=== PATIENT | female | born 1960 | race African-American/Black ===

== ENCOUNTER 2016-11-10 11:31 | Day surgery (SDC) | payer OTHER ==
[~2016-11-10 11:31] MED LIST: ADVI200C9 PO; DAYQLIQ PO; DIOV160T3 PO; DRISTAN; LORA-474 PO; METO25 PO; OMEGA 3 PO; OSEL75 PO; POTA-243 PO; TAB-TAB PO; ZITH250T PO
[2016-11-10] MEDS ORDERED: METOPROLOL TARTRATE 25 MG TAB PO PRN (12:00)
[2016-11-10] MEDS ORDERED: CHLORHEXIDINE GLUCONATE 2 % 1 PACK (2 CLOTHS) TOPICAL PRN (12:00)
[2016-11-10] MEDS ORDERED: POVIDONE IODINE 5% (ANTISEPSIS KIT) 4 APPLICATIONS EACH NARE PRN (12:00)
[2016-11-10] MEDS ORDERED: SODIUM CHLORID 0.9% 500 ML IV PRN (12:00)
[2016-11-10] MEDS ORDERED: LACTATED RINGER'S 1000 ML IV PRN (12:00)
[2016-11-10] MEDS ORDERED: INSULIN HUMAN REGULAR 1,000 UNITS/10 ML VIAL SQ PRN (12:00)
[2016-11-10] MEDS ORDERED: HYDR25TA5 PO (12:34)
[2016-11-10] MEDS ORDERED: GABA300C5 PO (12:34)
[2016-11-10] MEDS ORDERED: FERR240T8 PO (12:34)
[2016-11-10] MEDS ORDERED: METO50TA11 PO (12:34)
[2016-11-10] MEDS ORDERED: LISI40TA PO (12:34)
[2016-11-10] MEDS ORDERED: MULT1TAB46 PO (12:34)
[2016-11-10] MEDS ORDERED: CELE200C PO (12:34)
--- NOTE | 2016-11-11 12:40 | CF ---
cc: ALONSO GAMEZ DATE OF PROCEDURE 11/10/2016 PROCEDURE PERFORMED: Transesophageal echocardiogram. INDICATION: CVA. Evaluation for cardiac source of emboli and PFO. PROCEDURE: After the patient was sedated by Anesthesia, transesophageal probe was placed without difficulty. Tomographic images were obtained. Left ventricular function was preserved. Estimated ejection fraction of 60% with no segmental wall motion abnormalities. The left atrial appendage was visualized and there was no evidence of left atrial thrombus. The aortic valve was structurally normal; there was no evidence of aortic stenosis. There was evidence of mild aortic insufficiency. The mitral valve was structurally normal; there was no evidence of mitral valve stenosis. There was evidence of trace mitral regurgitation. The tricuspid valve was well visualized. There was no evidence of tricuspid stenosis. There was evidence of mild tricuspid regurgitation. There was evidence of mild left ventricular hypertrophy. The descending aorta had no significant plaque. Bubble study was performed and there was no evidence of [id number] shunt. DIAGNOSES: 1. No evidence of cardiac source of emboli. 2. No evidence of [id number] shunt. 3. Preserved left ventricular systolic function. 4. Mild left ventricular hypertrophy. 5. Mild aortic insufficiency. 6. Trace mitral regurgitation. 7. Mild tricuspid regurgitation. IMPRESSION: No evidence of endocardiac source of emboli. Alonso Gamez MD OQ/SSB /1:46 PM /12:29 PM
--- NOTE | 2016-11-11 14:53 | EKG ---
Date Performed: 11/10/2016 Time Performed: 12:45:22 PTAGE: 56 years EKG: Sinus bradycardia Normal ECG except for rate PREVIOUS TRACING : 02/02/2009 01.59 Since previous tracing, no significant change noted DOCTOR: Macey Jackson Interpretating Date/Time 11/11/2016 14:51:53
== END 2016-11-10 15:15 | disposition home or self-care (01) ==
LOC: HDOC 11:31 → HDIC 11:32 → HDOC 15:15
PROVIDERS: ATTEND Internal Medicine Interventional Cardiology
DX: I63.9 Cerebral infarction, unspecified (principal); I35.1 Nonrheumatic aortic (valve) insufficiency; I36.1 Nonrheumatic tricuspid (valve) insufficiency; I10 Essential (primary) hypertension; I20.9 Angina pectoris, unspecified; I65.29 Occlusion and stenosis of unspecified carotid artery; D68.59 Other primary thrombophilia; E87.5 Hyperkalemia; R53.1 Weakness
CPT/HCPCS: 93005; 93312; 93320; 93325

== ENCOUNTER 2017-09-26 11:57 | Emergency (ER) | payer OTHER ==
[~2017-09-26] VITALS: Ht 172.7 cm; Wt 120.0 kg
[~2017-09-26 11:57] MED LIST changes: -ADVI200C9 PO; +CELE200C PO; -DAYQLIQ PO; -DIOV160T3 PO; +FERR240T8 PO; +GABA300C5 PO; +HYDR25TA5 PO; +LISI40TA PO; -LORA-474 PO; +METO1TAB9 PO; -METO25 PO; +MULT1TAB46 PO; -OSEL75 PO; -POTA-243 PO; -TAB-TAB PO; -ZITH250T PO
[2017-09-26 12:15] VITALS: BP 137/71; PULSE 79; RESP 24; TEMP 99.8; O2SAT 97
[2017-09-26] MEDS ORDERED: SODIUM CHLORIDE 0.9% FLUSH 10 ML FLUSH IVF PRN (13:00)
--- NOTE | 2017-09-26 13:14 | PD ---
HPI Chief Complaint: Chest Pain Time Seen by Provider: 12:46 Travel History International Travel<30 days: No Contact w/Intl Traveler<30days: No Traveled to known affect area: No History of Present Illness HPI Patient is a 57-year-old female presenting to the emergency department for evaluation of chest pain, chest congestion, sinus pressure, cough. Patient states the cough is productive with yellow sputum. The chest pressure started this morning, it is intermittent in nature, midsternal, no radiation. Patient denies any shortness of breath or diaphoresis. She states she was sent by the urgent care center for cardiac evaluation. She presented to the urgent care center for cold and flulike symptoms that started yesterday. Patient states she felt fatigued and had an irritated throat yesterday, symptoms progressed overnight prompting her visit to the urgent care center. Patient has a history of heart attack and stroke last year. Patient reports compliance with her medications, she took a full-strength aspirin this morning. She rates the pain in her chest a 4 out of 10, sore, worse with coughing. Patient denies any abdominal pain, nausea, vomiting. She does believe she had a fever this morning because she states she felt warm. PFSH Past Medical History High Cholesterol: Yes Cerebrovascular Accident: Yes Hypertension: Yes Respiratory: Yes Myocardial Infarction: Yes Influenza Vaccination: Yes ?: Not Tubal Ligation: Yes Past Surgical History Abdominal Surgery: Yes (GASTRIC BYPASS SLEEVE 2015) Hysterectomy: Yes Social History Alcohol Use: Yes (OCCASIONAL) Tobacco Use: No Substance Use: No Allergies-Medications (Allergen,Severity, Reaction): Coded Allergies: acetaminophen (Unverified Allergy, Severe, Itching, 11/23/16) hydrocodone (Unverified Allergy, Severe, Itching, 11/23/16) latex (Unverified Allergy, Severe, 11/23/16) levofloxacin (Unverified Allergy, Severe, 11/23/16) tuberculin, purified protein deriva (Unverified Allergy, Severe, 11/23/16) doxycycline (Unverified Adverse Reaction, Mild, YEAST INFECTION, 11/23/16) penicillin G (Unverified Adverse Reaction, Mild, YEAST INFECTION, 11/23/16) Uncoded Allergies: DISOLVABLE SUTURES (Allergy, Unknown, 11/10/16) Reported Meds & Prescriptions Reported Meds & Active Scripts Active Azithromycin 250 Mg Tab 250 Mg PO DIRECTED Take 2 tabs (500 mg) on day 1 then 1 tab daily x 4 days. Reported Lisinopril 40 Mg Tab 40 Mg PO DAILY Hydrochlorothiazide 25 Mg Tab 25 Mg PO DAILY Iron (Ferrous Gluconate) 240 Mg Tablet 142 Mg PO DAILY Multi Vitamin Daily (Multiple Vitamin) 1 Tab Tab 1 Tab PO DAILY Celebrex (Celecoxib) 200 Mg Cap 200 Mg PO BID Gabapentin 300 Mg Cap 300 Mg PO BID Metoprolol Succinate ER 24 HR (Metoprolol Succinate) 50 Mg Tab 50 Mg PO DAILY [Nalini] [Mcgehee 3] 1 Tab PO DAILY Review of Systems Except as stated in HPI: all other systems reviewed are Neg General / Constitutional: Positive: Fever, Chills HENT: Positive: Headaches, Sore Throat, Congestion Cardiovascular: Positive: Chest Pain or Discomfort Respiratory: Positive: Cough, No: Shortness of Breath, Wheezing Gastrointestinal: No: Nausea, Vomiting, Diarrhea, Abdominal Pain Musculoskeletal: Positive: Myalgias Neurologic: Positive: Weakness, No: Dizziness, Syncope Physical Exam Narrative GENERAL: Well-developed, well-nourished, alert -Turkmen female. Presenting in no acute distress. SKIN: Warm and dry. HEAD: Atraumatic. Normocephalic. EYES: Pupils equal and round. No scleral icterus. No injection or drainage. ENT: No nasal bleeding or discharge. Mucous membranes pink and moist. Posterior pharynx with cobblestone appearance. NECK: Trachea midline. No JVD. CARDIOVASCULAR: Regular rate and rhythm. RESPIRATORY: No accessory muscle use. Clear to auscultation. Breath sounds equal bilaterally. GASTROINTESTINAL: Abdomen soft, non-tender, nondistended. Hepatic and splenic margins not palpable. MUSCULOSKELETAL: Extremities without clubbing, cyanosis, or edema. No obvious deformities. NEUROLOGICAL: Awake and alert. No obvious cranial nerve deficits. Motor grossly within normal limits. Five out of 5 muscle strength in the arms and legs. Normal speech. PSYCHIATRIC: Appropriate mood and affect; insight and judgment normal. Data Data Last Documented VS Vital Signs Date Time Temp Pulse Resp B/P (MAP) Pulse Ox O2 Delivery O2 Flow Rate FiO2 09/26/17 13:22 98 Room Air 09/26/17 12:15 99.8 79 24 137/71 (93) Orders Orders Electrocardiogram (09/26/17 12:46) Ckmb (Isoenzyme) Profile (09/26/17 12:46) Complete Blood Count With Diff (09/26/17 12:46) Comprehensive Metabolic Panel (09/26/17 12:46) Magnesium (Mg) (09/26/17 12:46) Prothrombin Time / Inr (Pt) (09/26/17 12:46) Act Partial Throm Time (Ptt) (09/26/17 12:46) Troponin I (09/26/17 12:46) Lipase (09/26/17 12:46) Chest, Single Ap (09/26/17 12:46) Ecg Monitoring (09/26/17 12:46) Bilateral Bp Monitoring (09/26/17 12:46) Iv Access Insert/Monitor (09/26/17 12:46) Oximetry (09/26/17 12:46) Oxygen Administration (09/26/17 12:46) Sodium Chloride 0.9% Flush (Ns Flush) (09/26/17 13:00) Ed Discharge Order (09/26/17 14:35) Labs Laboratory Tests Test 09/26/17 13:18 White Blood Count 5.5 TH/MM3 Red Blood Count 4.61 MIL/MM3 Hemoglobin 12.0 GM/DL Hematocrit 37.3 % Mean Corpuscular Volume 81.1 FL Mean Corpuscular Hemoglobin 26.1 PG Mean Corpuscular Hemoglobin Concent 32.2 % Red Cell Distribution Width 14.4 % Platelet Count 233 TH/MM3 Mean Platelet Volume 8.9 FL Neutrophils (%) (Auto) 65.5 % Lymphocytes (%) (Auto) 22.7 % Monocytes (%) (Auto) 10.9 % Eosinophils (%) (Auto) 0.3 % Basophils (%) (Auto) 0.6 % Neutrophils # (Auto) 3.6 TH/MM3 Lymphocytes # (Auto) 1.2 TH/MM3 Monocytes # (Auto) 0.6 TH/MM3 Eosinophils # (Auto) 0.0 TH/MM3 Basophils # (Auto) 0.0 TH/MM3 CBC Comment DIFF FINAL Differential Comment Prothrombin Time 10.4 SEC Prothromb Time International Ratio 1.0 RATIO Activated Partial Thromboplast Time 26.6 SEC Blood Urea Nitrogen 12 MG/DL Creatinine 0.85 MG/DL Random Glucose 88 MG/DL Total Protein 6.8 GM/DL Albumin 3.6 GM/DL Calcium Level 7.8 MG/DL Magnesium Level 1.8 MG/DL Alkaline Phosphatase 118 U/L Aspartate Amino Transf (AST/SGOT) 16 U/L Alanine Aminotransferase (ALT/SGPT) 24 U/L Total Bilirubin 0.7 MG/DL Sodium Level 145 MEQ/L Potassium Level 3.7 MEQ/L Chloride Level 109 MEQ/L Carbon Dioxide Level 26.9 MEQ/L Anion Gap 9 MEQ/L Estimat Glomerular Filtration Rate 83 ML/MIN Total Creatine Kinase 70 U/L Troponin I LESS THAN 0.02 NG/ML Lipase 137 U/L MDM Medical Decision Making Medical Screen Exam Complete: Yes Emergency Medical Condition: Yes Interpretation(s) Vital Signs Date Time Temp Pulse Resp B/P (MAP) Pulse Ox O2 Delivery O2 Flow Rate FiO2 09/26/17 12:37 Room Air 09/26/17 12:15 99.8 79 24 137/71 (93) 97 Differential Diagnosis Bronchitis versus pneumonia versus ACS versus USA versus costochondritis versus other Narrative Course Patient is a 57-year-old female that presented emergency department for evaluation of cold and flulike symptoms, she reportedly has been experiencing intermittent chest pain which is worse with coughing. Patient's vital signs are stable. Labs and imaging ordered and pending. CBC, chemistry coags with no acute findings. Cardiac enzymes are negative 1 set. Initial EKG which was read by my attending physician shows normal sinus rhythm. Chest x-ray is negative for acute findings. Patient was also seen and evaluated by my attending physician, case was discussed with her. Patient's physical exam and presentation appear most consistent with a bronchitis. Patient will be discharged home on azithromycin. She is encouraged to follow-up with her primary doctor or return to emergency department for any new or worsening symptoms. She was encouraged to take ibuprofen or acetaminophen as needed as directed for fevers or body aches and pain. Patient verbalized understanding of these instructions. Patient stable for discharge. Diagnosis Primary Impression: Acute bronchitis Qualified Codes: J20.9 - Acute bronchitis, unspecified Referrals: Cat Skinner Primary Care Physician Patient Instructions: Acute Bronchitis (ED), General Instructions Additional Instructions: Complete course of antibiotics as prescribed Continue symptom management Follow-up with your primary doctor Return to emergency department for any new or worsening symptoms Rest, maintain adequate fluid intake Med/Other Pt SpecificInfo: Prescription(s) given Scripts Benzonatate (Tessalon Perles) 100 Mg Cap 200 MG PO TID Y for COUGH, #15 CAP 0 Refills Prov: Josefina Napoles 09/26/17 Methylprednisolone Dosepak (Medrol Dosepak) 4 Mg Dspk 4 MG PO DIRECTED, #1 DSPK 0 Refills Per Pharmacist direction Prov: Josefina Napoles 09/26/17 Azithromycin (Azithromycin) 250 Mg Tab 250 MG PO DIRECTED for Infection, #6 TAB 0 Refills Take 2 tabs (500 mg) on day 1 then 1 tab daily x 4 days. Prov: Josefina Napoles 09/26/17 Disposition: 01 DISCHARGE HOME Condition: Stable Josefina Napoles Sep 26, 2017 13:14
--- NOTE | 2017-09-26 13:23 | RADRPT ---
EXAM DATE: 09/26/2017 1:20 PM EDT AGE/SEX: 57 years / Female INDICATIONS: Chest pain. CLINICAL DATA: This is the patient's initial encounter. Patient reports that signs and symptoms have been present for 1 day and indicates a pain score of 5/10. MEDICAL/SURGICAL HISTORY: . Myocardial infarction. None. COMPARISON: POI, XR CHEST PA AND LAT, 03/17/2017. . FINDINGS: A single AP view of the chest demonstrates the lungs to be symmetrically aerated without evidence of mass, infiltrate or effusion. The cardiomediastinal contours are unremarkable. Osseous structures a re intact. There appear to be clips in the left upper quadrant. CONCLUSION: No acute cardiopulmonary process. Electronically signed by: Eduardo Morton MD 09/26/2017 1:22 PM EDT
[2017-09-26 13:38] LABS: AUTOMATED NEUTROPHIL # 3.6 TH/MM3 (1.8-7.7); BASOPHIL % 0.6 % (0.0-2.0); EOSINOPHIL % 0.3 % (0.0-4.0); HEMATOCRIT 37.3 % (35.0-46.0); LYMPH % 22.7 % (9.0-44.0); LYMPHOCYTE # 1.2 TH/MM3 (1.0-4.8); MEAN CELL VOLUME 81.1 FL (80.0-100.0); MEAN CORPUSCULAR HEMOGLOBIN 26.1 PG (27.0-34.0); MEAN CORPUSCULAR HGB CONC 32.2 % (32.0-36.0); MEAN PLATELET VOLUME 8.9 FL (7.0-11.0); MONO % 10.9 % (0.0-8.0); MONOCYTE # 0.6 TH/MM3 (0-0.9); NEUT % 65.5 % (16.0-70.0); PLATELET COUNT 233 TH/MM3 (150-450); RED BLOOD COUNT 4.61 MIL/MM3 (4.00-5.30); RED CELL DISTRIBUTION WIDTH 14.4 % (11.6-17.2); WHITE BLOOD COUNT 5.5 TH/MM3 (4.0-11.0)
[2017-09-26 13:48] LABS: PROTHROMBIN TIME - PATIENT 10.4 SEC (9.8-11.6)
[2017-09-26 14:04] LABS: ALBUMIN 3.6 GM/DL (3.4-5.0); ALT (GPT) 24 U/L (10-53); AST (GOT) 16 U/L (15-37); BICARBONATE 26.9 MEQ/L (21.0-32.0); BLOOD UREA NITROGEN 12 MG/DL (7-18); CALCIUM 7.8 MG/DL (8.5-10.1); CHLORIDE 109 MEQ/L (98-107); CREATININE 0.85 MG/DL (0.50-1.00); GLOMERULAR FILTRATION RATE 83 ML/MIN (>89); GLUCOSE,RANDOM 88 MG/DL (74-106); MAGNESIUM 1.8 MG/DL (1.5-2.5); SODIUM (NA) 145 MEQ/L (136-145)
[2017-09-26 14:09] LABS: ALKALINE PHOSPHATASE 118 U/L (45-117); TOTAL BILIRUBIN ADULT 0.7 MG/DL (0.2-1.0); TOTAL PROTEIN 6.8 GM/DL (6.4-8.2); TROPONIN I LESS THAN 0.02 NG/ML (0.02-0.05)
--- NOTE | 2017-09-26 14:31 | PD ---
Physical Exam Date Seen by Provider: Sep 26, 2017 Narrative This patient presents with respiratory symptoms. She has a scratchy sore throat and cough. She also has some chest discomfort. Data Data Last Documented VS Vital Signs Date Time Temp Pulse Resp B/P (MAP) Pulse Ox O2 Delivery O2 Flow Rate FiO2 09/26/17 13:22 98 Room Air 09/26/17 12:15 99.8 79 24 137/71 (93) Orders Orders Electrocardiogram (09/26/17 12:46) Ckmb (Isoenzyme) Profile (09/26/17 12:46) Complete Blood Count With Diff (09/26/17 12:46) Comprehensive Metabolic Panel (09/26/17 12:46) Magnesium (Mg) (09/26/17 12:46) Prothrombin Time / Inr (Pt) (09/26/17 12:46) Act Partial Throm Time (Ptt) (09/26/17 12:46) Troponin I (09/26/17 12:46) Lipase (09/26/17 12:46) Chest, Single Ap (09/26/17 12:46) Ecg Monitoring (09/26/17 12:46) Bilateral Bp Monitoring (09/26/17 12:46) Iv Access Insert/Monitor (09/26/17 12:46) Oximetry (09/26/17 12:46) Oxygen Administration (09/26/17 12:46) Sodium Chloride 0.9% Flush (Ns Flush) (09/26/17 13:00) Labs Laboratory Tests Test 09/26/17 13:18 White Blood Count 5.5 TH/MM3 Red Blood Count 4.61 MIL/MM3 Hemoglobin 12.0 GM/DL Hematocrit 37.3 % Mean Corpuscular Volume 81.1 FL Mean Corpuscular Hemoglobin 26.1 PG Mean Corpuscular Hemoglobin Concent 32.2 % Red Cell Distribution Width 14.4 % Platelet Count 233 TH/MM3 Mean Platelet Volume 8.9 FL Neutrophils (%) (Auto) 65.5 % Lymphocytes (%) (Auto) 22.7 % Monocytes (%) (Auto) 10.9 % Eosinophils (%) (Auto) 0.3 % Basophils (%) (Auto) 0.6 % Neutrophils # (Auto) 3.6 TH/MM3 Lymphocytes # (Auto) 1.2 TH/MM3 Monocytes # (Auto) 0.6 TH/MM3 Eosinophils # (Auto) 0.0 TH/MM3 Basophils # (Auto) 0.0 TH/MM3 CBC Comment DIFF FINAL Differential Comment Prothrombin Time 10.4 SEC Prothromb Time International Ratio 1.0 RATIO Activated Partial Thromboplast Time 26.6 SEC Blood Urea Nitrogen 12 MG/DL Creatinine 0.85 MG/DL Random Glucose 88 MG/DL Total Protein 6.8 GM/DL Albumin 3.6 GM/DL Calcium Level 7.8 MG/DL Magnesium Level 1.8 MG/DL Alkaline Phosphatase 118 U/L Aspartate Amino Transf (AST/SGOT) 16 U/L Alanine Aminotransferase (ALT/SGPT) 24 U/L Total Bilirubin 0.7 MG/DL Sodium Level 145 MEQ/L Potassium Level 3.7 MEQ/L Chloride Level 109 MEQ/L Carbon Dioxide Level 26.9 MEQ/L Anion Gap 9 MEQ/L Estimat Glomerular Filtration Rate 83 ML/MIN Total Creatine Kinase 70 U/L Troponin I LESS THAN 0.02 NG/ML Lipase 137 U/L MDM Supervised Visit with GONZALO: Yes Narrative Course I, Dr. Chaney, have reviewed the advance practice practitioner's documentation and am in agreement, met with the patient face to face, made the diagnosis, and the medical decision making was done by me. *My assessment and Findings: Awake and alert. She has diffuse expiratory wheezing. Please see Josefina Herrera NP's note for a more detailed H&P, final diagnosis and disposition Soraida Chaney MD Sep 26, 2017 14:31
[2017-09-26] MEDS ORDERED: AZIT250T3 PO (14:34)
[2017-09-26] MEDS ORDERED: BENZ100 PO (15:41)
[2017-09-26] MEDS ORDERED: MEDR4PAK PO (15:41)
--- NOTE | 2017-09-27 17:02 | EKG ---
Date Performed: 09/26/2017 Time Performed: 12:50:44 PTAGE: 57 years EKG: Sinus rhythm POSSIBLE LEFT ATRIAL ENLARGEMENT BORDERLINE ECG PREVIOUS TRACING ;11/10/2016 @12.45 DOCTOR: Ibeth Soler Interpretating Date/Time 09/27/2017 16:59:39
== END 2017-09-26 14:55 | disposition home or self-care (01) ==
LOC: NEPC 11:57
DX: J20.9 Acute bronchitis, unspecified (principal); R94.31 Abnormal electrocardiogram [ECG] [EKG]; R09.89 Other specified symptoms and signs involving the circulatory and respiratory systems; R05 Cough; I25.2 Old myocardial infarction; I10 Essential (primary) hypertension; E78.00 Pure hypercholesterolemia, unspecified; Z98.84 Bariatric surgery status; Z88.0 Allergy status to penicillin
CPT/HCPCS: 71045; 80053; 82550; 83690; 83735; 84484; 85025; 85610; 85730; 93005; 99285